=== PATIENT | female | born 1945 | race Caucasian/White ===

== ENCOUNTER 2019-08-16 01:13 | Emergency (ER) | payer MEDICARE, OTHER ==
--- OUTSIDE RECORDS SUMMARY | 2019-08-16 01:27 | XMS REPORT | Continuity of Care Document ---
:1945 External Reference #:[id number] Author Name Peggy Pierce M.D. (transmitted by agent of provider Laila York) Address [address] [place] [address] Care Team Providers Name Role Phone Myla Kramer M.D.,DMD Care Team Information Microbiology Technician [phone] Problems Active Problems Provider Date Body mass index 25-29 - overweight Peggy Pierce M.D. Onset: 08/01/2019 Contusion of left lower leg, subsequent Peggy Pierce M.D. 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 Onset: AND inflammation Varicose veins of lower extremity Peggy Pierce M.D. Onset: 01/07/2016 Social History Type Date Description Comments Sex Unknown ETOH Use Occasionally consumes alcohol Tobacco Use Start: Unknown Patient has never smoked Recreational Drug Use Denies Drug Use Smoking Status Reviewed: 01/16/18 Patient has never smoked Allergies, Adverse Reactions, Alerts Active Allergies Reaction Severity Comments Date Sulfa Antibiotics Hives 03/06/2014 Adhesives Itching, 03/06/2014 Medications Active Medications SIG Qnty Indications Ordering Provider Date Compression Stockings wear as directed 1pair I83.893 Peggy Pierce, 01/07 Wear Daily For 6 M.D. Months 20-30MMHG Thigh High Misc Compression Stockings open toe 2Pair I83.893 Peggy Pierce, 12/08/2016 Wear Daily For 6 M.D. Months 20-30MMHG Thigh High Misc Compression Stockings wear as directed 1Pair I83.891 Tommie Alonzo 06/2016 Wear Daily For 6 . Months 20-30MMHG Thigh High Mis Compression Stockings 1Pair Peggy Pierce, 11/23/2015 Wear Daily For 6 M.D. Months 20-30MMHG Knee Highs Misc Xiidra as Directed Unknown 5% Solution Pure Vitamin PO qd Unknown Vitamin D po qd Unknown 1000Unit Tablets Valsartan-Hydrochlorot Take 1 Tablet By Unknown hiazide Mouth Every Day 320-12.5mg Tablets Vitamin D2 Unknown 2000Unit Tablets Amlodipine Besylate Unknown 5mg Tablets Vitamin C by mouth every Unknown 500mg Tablets day Flonase Allergy Relief 1 spray per Unknown nostril twice a 50mcg/Act Suspension every day as needed Calcium 1200 qd Unknown [id number] Chewtabs Estrace 3 Times Weekly Unknown 0.1mg/GM Cream Lamotrigine plus 25 mg daily Unknown 100mg Tablets Clonazepam Odt prn Unknown 0.25mg Tablets Dispers Simvastatin qd Unknown 20mg Tablets Levothyroxine Sodium qd Unknown 125mcg Tablets Immunizations CPT Code Status Date Vaccine Lot # [id number] Given 07/29/2018 Influenza Vaccine [id number] Given 07/19/2017 Influenza Vaccine [id number] Given 01/16/2014 Pneumococcal Vaccine Vital Signs Date Vital Result Comment 08/01/2019 11:17am Height 63 inches 5'3" Weight 156.00 lb BP Systolic 130 mmHg BP Diastolic 71 mmHg BMI (Body Mass Index) 27.6 kg/m2 Heart Rate 72 /min Respiratory Rate 18 /min 07/08/2019 1:43pm Height 63 inches 5'3" Weight 156.00 lb BP Systolic 145 mmHg BP Diastolic 86 mmHg BMI (Body Mass Index) 27.6 kg/m2 Heart Rate 81 /min Respiratory Rate 18 /min Pain Level 1 out of 10 Results Description No Information Available Procedures Date Code Description Status 08/01/2019 44948 Duplex Scan Extremity Veins, Unilateral Or Limited Study Completed 07/08/2019 85864 Duplex Scan Extremity Veins, Unilateral Or Limited Study Completed 07/02/2019 48890 Laser Ablation Second Vessel Completed 07/02/2019 68489 Endovenous Laser Therapy Completed 06/10/2019 08455 Duplex Scan Extremity Veins, Unilateral Or Limited Study Completed 06/02/2019 52678 Laser Ablation Second Vessel Completed 06/02/2019 18326 Endovenous Laser Therapy Completed Medical Devices Description No Information Available Encounters Type Date Location Provider Dx Diagnosis Office Visit 07/08/2019 [facility], I83.892 Varicose veins of l 1:30p [place] low extrem with other complications Z68.27 Body mass index (BMI) 27.0-27.9, adult Office Visit 06/10/2019 1:30p [facility] An[facility] Perez I83.891 Varicose veins of r [employer]OPER low extrem with other complications Z68.27 Body mass index (BMI) 27.0-27.9, adult Assessments Date Code Description Provider 08/01/2019 I83.891 Varicose veins of right lower extremity with Peggy Pierce M.D. other complications 08/01/2019 Z68.27 Body mass index (BMI) 27.0-27.9, adult Peggy Pierce M.D. 07/08/2019 I83.892 Varicose veins of left lower extremity with AI Yousif other complications 07/08/2019 Z68.27 Body mass index (BMI) 27.0-27.9, adult AI Yousif 07/02/2019 I83.892 Varicose veins of left lower extremity with Peggy Pierce M.D. other complications 06/10/2019 I83.891 Varicose veins of right lower extremity with JAZIEL Gonzáles other complications 06/10/2019 Z68.27 Body mass index (BMI) 27.0-27.9, adult JAZIEL Gonzáles 06/02/2019 I83.891 Varicose veins of right lower extremity with Peggy Pierce M.D. other complications Plan of Treatment Future Appointment(s):01/09/2020 11:20 am - Peggy Pierce M.D. at [facility]/09/2020 11:00 am - Peggy Pierce M.D. at [facility] [place] Functional Status Description No Information Available Mental Status Description No Information Available Referrals Description No Information Available
--- OUTSIDE RECORDS SUMMARY | 2019-08-16 01:27 | XMS REPORT | Continuity of Care Document ---
:1945 External Reference #:[id number] Author Name AI Yousif (transmitted by agent of provider Laila York) Address [address] [place] [address] Care Team Providers Name Role Phone Myla Kramer M.D.,DMD Care Team Information Emergency Department Manager [phone] Problems Active Problems Provider Date Contusion of left lower leg, subsequent Peggy [...] For 6 . Months 20-30MMHG Thigh High Misc Compression Stockings 1Pair Peggy Pierce, 11/23/2015 Wear [...] day as needed Calcium 1200 qd Unknown [id number] Chewtabs Estrace 3 Times Weekly Unknown 0.1mg/GM Cream Lamotrigine plus 25 mg daily Unknown 100mg Tablets Clonazepam Odt prn Unknown 0.25mg Tablets Dispers Simvastatin qd Unknown 20mg Tablets Levothyroxine Sodium qd Unknown 125mcg Tablets Immunizations CPT Code Status Date Vaccine Lot # [id number] Given 07/29/2018 Influenza Vaccine [id number] Given 07/19/2017 Influenza Vaccine [id number] Given 01/16/2014 Pneumococcal Vaccine Vital Signs Date Vital Result Comment 07/08/2019 1:43pm Height 63 inches 5'3" Weight 156.00 lb BP Systolic 145 mmHg BP Diastolic 86 mmHg BMI (Body Mass Index) 27.6 kg/m2 Heart Rate 81 /min Respiratory Rate 18 /min Pain Level 1 out of 10 06/10/2019 1:34pm Height 63 inches 5'3" Weight 156.00 lb BP Systolic 139 mmHg BP Diastolic 76 mmHg BMI (Body Mass Index) 27.6 kg/m2 Heart Rate 74 /min Respiratory Rate 18 /min Results Description No Information Available Procedures Date Code Description Status 07/08/2019 19342 Duplex Scan Extremity Veins, Unilateral Or Limited Study Completed 07/02/2019 31211 Laser Ablation Second Vessel Completed 07/02/2019 91706 Endovenous Laser Therapy Completed 06/10/2019 22619 Duplex Scan Extremity Veins, Unilateral Or Limited Study Completed 06/02/2019 65599 Laser Ablation Second Vessel Completed 06/02/2019 80143 Endovenous Laser Therapy Completed 01/07/2019 35093 Duplex Scan Extremity Veins Complete Bilateral Completed Medical Devices Description No Information Available Encounters Type Date Location Provider Dx Diagnosis Office Visit 06/10/2019 [facility] J[facility] Gonz[facility]les I83.891 Varicose veins of r 1:30p low extrem with other complications Z68.27 Body mass index (BMI) 27.0-27.9, adult Office Visit 01/07/2019 11:40a [facility] Peggy Pierce, I83.893 Varicose veins of M.D. bi low extrem w [facility] complications Office Visit 01/07/2019 11:20a [facility] Peggy Pierce, I83.893 Varicose veins of M.D. bi low extrem w [facility] complications Assessments Date Code Description Provider 07/08/2019 I83.892 Varicose veins of left lower [...] extremity with Peggy Pierce M.D. other complications 01/07/2019 I83.893 Varicose veins of bilateral lower extremities Peggy Pierce M.D. with other com Plan of Treatment Future Appointment(s):08/01/2019 11:00 am - Peggy Pierce M.D. at [facility] [place] Functional Status Description No Information Available Mental Status Description No Information Available Referrals Description No Information Available
[2019-08-16] MEDS ORDERED: diPHENhydraMINE IV* 50 MG/ML 1 ml VIAL (BENADRYL) SLOW PUSH ONE (03:48)
[2019-08-16] MEDS ORDERED: Ketorolac INJ* 30 MG/ML 1 ML VIAL IV PUSH ONE (03:48)
[2019-08-16] MEDS ORDERED: PROCHLORPERAZINE INJ 5 MG/ML 2 ML VIAL IV ONE (03:48)
--- NOTE | 2019-08-16 03:48 | ED ---
Headache - HPI Summary HPI Summary: This pt is a 74 Y/O F presenting to [facility] accompanied by her friend with a CC of a headache that is located on her R side behind her R ear that is currently rated a 10/10 in severity and radiates into her R neck. She states that she has a PMHx of similar symptoms. She took an Excedrin for the pain without any relief at 1300. She states that her headache has been present since 1100 . She denies any photophobia, ocular differences, and N/V. She states that her headache started gradually and then became unbearable throughout the day. She has a PMHx of a meningioma in 2000. - History Of Current Complaint Chief Complaint: EDHeadache Stated Complaint: HEADACHE PER PT Time Seen by Provider: 08/16/19 03:37 Hx Obtained From: Patient Last Known Well Date: 08/15/19 before 1100 Onset/Duration: Gradual Onset, Still Present, Worse Since - onset Initially Headache Was: Initial Pain Scale(0-10)= - 2/10 Currently Pain Is: Current Pain Scale(0-10)= - 10/10 Timing: Constant Character: Sharp Location of Headache: Other: - Behind R ear, focal Aggravating Factor: Nothing Allevating Factors: Nothing Associated Signs And Symptoms: Negative - photophobia, ocular differences, and N /V., Neck Stiffness - R sided - Allergies/Home Medications Allergies/Adverse Reactions: Allergies Allergy/AdvReac Type Severity Reaction Status Date / Time Adhesive Tape Allergy Mild Rash Verified 06/25/19 14:38 Sulfa (Sulfonamide Allergy Rash Verified 06/25/19 14:38 Antibiotics) PMH/Surg Hx/FS Hx/Imm Hx Previously Healthy: Yes Endocrine/Hematology History: Reports: Hx Thyroid Disease - Hx OF 1999, HYPER, WAS RADIATED, NOW TAKES DAILY MEDS Denies: Hx Diabetes Cardiovascular History: Reports: Hx Hypercholesterolemia, Hx Hypertension - TAKES MEDICATION Denies: Hx Pacemaker/ICD Comment Only: Hx Peripheral Vascular Disease - Hx OF, GI History: Reports: Hx Gastroesophageal Reflux Disease - ON DAILY NEXIUM, Hx Hiatal Hernia - SMALL, HAS HAD ENDOS. x2, NO Tx History: Reports: Hx Kidney Stones - Hx OF 2009, SURGICALLY REMOVED, DR RAMIREZ Denies: Hx Dialysis, Hx Renal Disease Musculoskeletal History: Reports: Hx Arthritis - FEET, HANDS, Hx Osteoporosis Denies: Hx Rheumatoid Arthritis Sensory History: Reports: Hx Contacts or Glasses - GLASSES Denies: Hx Hearing Aid Opthamlomology History: Reports: Hx Contacts or Glasses - GLASSES Neurological History: Reports: Hx Seizures - Hx OF, HAD BRAIN SURGERY , NO SEIZURES SINCE 2006 Psychiatric History: Denies: Hx Panic Disorder - Cancer History Hx Chemotherapy: No Hx Radiation Therapy: No - Surgical History Surgery Procedure, Year, and Place: VARICOSE VEIN CLOSUURE . BENIGN MENINGIOMA W/CRANIOTOMY. PARTIAL HYSTERECTOMY,. LT & RT FOOT BUNIONECTOMY,. TONSILS,. LITHOTRIPSY Hx Anesthesia Reactions: No - Immunization History Immunizations Up to Date: Yes Infectious Disease History: No Infectious Disease History: Denies: Traveled Outside the [place] in Last 30 Days - Family History Known Family History: Positive: Cardiac Disease, Hypertension - paternal , Other - Chrons diseae - Social History Occupation: Retired Lives: Alone Alcohol Use: Occasionally Alcohol Amount: FEW/ DRINK A YEAR Hx Substance Use: No Substance Use Type: Reports: None Hx Tobacco Use: No Smoking Status (MU): Never Smoked Tobacco Have You Smoked in the Last Year: No Review of Systems Eyes: Negative Negative: Photophobia ENT: Other - radiated neck pain Negative: Vomiting, Nausea Positive: Headache All Other Systems Reviewed And Are Negative: Yes Physical Exam - Summary Physical Exam Summary: Appearance: Well-appearing, Well-nourished, lying in bed comfortably Skin: Warm, dry, no obvious rash Eyes: sclera anicteric, no conjunctival pallor ENT: mucous membranes moist, pharynx appears normal Neck: Supple, nontender Respiratory: Clear to auscultation, no signs of respiratory distress Cardiovascular: Normal S1, S2. No murmurs. Normal distal pulses in tibial and radial bilaterally. Abdomen: Soft, nontender, normal active bowel sounds present Musculoskeletal: Normal, Strength/ROM Intact Neurological: A&Ox3, awake and alert, mentation is normal, speech is fluent and appropriate Psychiatric: affect is normal, does not appear anxious or depressed Triage Information Reviewed: Yes Vital Signs On Initial Exam: Initial Vitals Temp Pulse Resp BP Pulse Ox 98.7 F 73 16 164/100 96 08/16/19 01:14 08/16/19 01:14 08/16/19 01:14 08/16/19 01:14 08/16/19 01:14 Vital Signs Reviewed: Yes Procedures - Sedation Patient Received Moderate/Deep Sedation with Procedure: No Diagnostics - Vital Signs Vital Signs Temp Pulse Resp BP Pulse Ox 08/16/19 01:14 98.7 F 73 16 164/100 96 - Laboratory Lab Statement: Any lab studies that have been ordered have been reviewed, and results considered in the medical decision making process. Headache Course/Dx - Course Course Of Treatment: This pt is a 74 Y/O F presenting to [facility] accompanied by her friend with a CC of a headache that is located on her R side behind her R ear that is currently rated a 10/10 in severity. She states that she has a PMHx of similar symptoms. She took an Excedrin for the pain without any relief at 1300. Her PE has no abnormal findings. She was given toradol, benadryl, and compazine during her ED course. She will be discharged home with a Dx of a headache. - Diagnoses Provider Diagnoses: Headache Discharge ED - Sign-Out/Discharge Documenting (check all that apply): Patient Departure - Discharge Plan Condition: Good Disposition: HOME Patient Education Materials: Acute Headache (ED) Referrals: Belia Kramer MD [Primary Care Provider] - If Needed - Billing Disposition and Condition Condition: GOOD Disposition: Home - Attestation Statements Document Initiated by Jong: Yes Documenting Ceciliaibe: Sukumar Lyle Provider For Whom Jong is Documenting (Include Credential): Thiago Hartmann MD Scriblew Attestation: Sukumar Carrasquillo, scribed for Thiago Hartmann MD on 08/17/19 at 1947. Scribe Documentation Reviewed: Yes Provider Attestation: The documentation as recorded by the Sukumar dyer accurately reflects the service I personally performed and the decisions made by me, Thiago Hartmann MD Status of Scribe Document: Viewed
[2019-08-16] MEDS ORDERED: NS 0.9% 1000 ML** 1,000 ML IV ONE (03:49)
[2019-08-16 06:24] VITALS: BP 139/97
== END 2019-08-16 06:23 | disposition home or self-care (01) ==
LOC: ED 01:13
DX: R51 Headache (principal); E03.9 Hypothyroidism, unspecified; E78.00 Pure hypercholesterolemia, unspecified; I10 Essential (primary) hypertension; K21.9 Gastro-esophageal reflux disease without esophagitis; Z87.442 Personal history of urinary calculi
CPT/HCPCS: 36415; 85652; 96361; 96374; 96375; 99283; J0780; J1200; J1885

== ENCOUNTER 2024-02-05 06:33 | Observation (INO) ==
[~2024-02-05 06:33] MED LIST: NS 0.45% 1000 ml BAG 1,000 ML IV SCH; Naloxone 0.4 mg VIAL 0.4 mg/ml 1 ml VIAL IV PRN; Ondansetron 4 mg VIAL 2 MG/ML 2 ml VIAL IV PRN; fentaNYL 100 mcg/2 ml 50 MCG/ML VIAL IV PRN
[2024-02-05] MEDS ORDERED: Tranexamic Acid 1 GM/100ML BAG 2,000 MG/200 ML BAG IV ONE (07:25)
[2024-02-05] MEDS ORDERED: ceFAZolin 2 GM PREMIX 2 GM/50 ML BAG ONE (07:25)
[2024-02-05] MEDS: Lactated Ringers 1000 ml BAG 1,000 ML IV SCH ×2 (07:36→14:51)
[2024-02-05 07:58] LABS: Rapid COVID-19 Molecular Undetected (Undetected)
[2024-02-05] MEDS ORDERED: ROPIVACAINE 5 MG/ML 30 ML BTL (0.5%) ONE ×2 (08:32→08:35)
[2024-02-05] MEDS ORDERED: Midazolam 2 mg/2 ml VIAL 1 mg/ml 2 ml VIAL (2 mg) ONE (08:35)
[2024-02-05] MEDS ORDERED: fentaNYL 100 mcg/2 ml 50 MCG/ML VIAL ONE (08:35)
[2024-02-05] MEDS ORDERED: Bupivacaine-MPF SPINAL 7.5 MG/ML - 2ML AMP ONE (09:33)
[2024-02-05] MEDS ORDERED: Magnesium Hydroxide LIQ 30 ML UDC PO PRN (10:57)
[2024-02-05] MEDS ORDERED: Ondansetron 4 mg VIAL 2 MG/ML 2 ml VIAL IV PRN (10:57)
[2024-02-05] MEDS ORDERED: Lactulose 30 ml UDC PO PRN (10:57)
[2024-02-05] MEDS ORDERED: Ondansetron ODT 4 mg TAB 4 MG TAB PO PRN (10:57)
[2024-02-05] MEDS ORDERED: Morphine 2 MG/ML SYRINGE IV PRN (10:57)
[2024-02-05] MEDS ORDERED: Ondansetron 4 mg VIAL 2 MG/ML 2 ml VIAL ONE (11:59)
[2024-02-05] MEDS ORDERED: Dexamethasone IV 4 MG/ML VIAL 1 ml VIAL ONE (11:59)
[2024-02-05] MEDS: Buffered Lidocaine 1% SYRIN 1 ml INTRADERM ONE (14:50)
[2024-02-05] MEDS: Acetaminophen IV 1 GM/100ML 1,000 MG/100 ML BAG IV ONE (14:50)
[2024-02-05] MEDS: LAMOTRIGINE 25 MG PO SCH ×2 (15:50→15:52)
[2024-02-05] MEDS: ceFAZolin 1 GM ADVAN 1 GM in NS 0.9% 50 ML 50 ML IVPB SCH (18:22)
[2024-02-05] MEDS: CMCS:Lamotrigine XR 100 mg TAB (NF) PO SCH (19:00)
[2024-02-05] MEDS: Magnesium Hydroxide LIQ 30 ML UDC PO SCH (20:38)
[2024-02-05] MEDS: CROMOLYN INTRANASAL SCH (20:39)
[2024-02-05] MEDS: CMCS:Cyclosporine 0.05% OPHTH (NF) 0.4 ML VIAL BOTH EYES SCH (20:39)
[2024-02-05] MEDS: NON FORMULARY MED (Magnesium Glycinate 100 mg Tablet) PO SCH (20:40)
[2024-02-06 05:21] LABS: Hematocrit 29.6 % (35-45); Hemoglobin 10.3 g/dL (11.5-14.3); Mean Platelet Volume 7.6 fL (7.5-11.2); Platelet Count 154 10^3/uL (150-450)
[2024-02-06 06:45] LABS: Calcium 8.5 mg/dL (8.6-10.3); Creatinine, Serum 0.71 mg/dL (0.51-0.95); Potassium 4.1 mmol/L (3.5-5.0); eGFR CKD-EPI 85.9 (>60)
[2024-02-06] MEDS: Potassium Chlor 10 meq TAB PO SCH (08:23)
[2024-02-06] MEDS: Vitamin THERAPEUTIC TAB PO SCH (08:25)
[2024-02-06] MEDS: Cholecalciferol (VIT D3) 1,000 unit TAB PO SCH (08:25)
[2024-02-06 10:01] VITALS: BP 153/69
[2024-02-06] MEDS: LAMOTRIGINE 25 MG PO SCH (13:39)
== END 2024-02-06 14:45 | disposition home or self-care (01) ==
LOC: SSU 06:33 → OR 06:33
PROVIDERS: ADMIT Orthopaedic Surgery Adult Reconstructive Orthopaedic Surgery; ATTEND Orthopaedic Surgery Adult Reconstructive Orthopaedic Surgery